=== PATIENT | female | born 1965 | race Caucasian/White ===

== ENCOUNTER 2016-11-29 17:06 | Inpatient (IN) | payer SELFPAY ==
--- NOTE | 2016-11-29 20:10 | HP ---
PRIMARY CARE PHYSICIAN: None. CHIEF COMPLAINT: Abdominal pain. HISTORY OF PRESENT ILLNESS: Ms. Stone is a pleasant 51-year-old lady, who was seen at [facility] on 11/29/2016, following transfer from [place]. She reports that she woke up from sleep around 5:15 a.m. today with right lower quadrant pain. She describes it as sharp, 10/10, nonradiating, on and off, lasting 2-3 minutes each time, no known aggr avating or relieving factors, accompanied by nausea and vomiting, but no diarrhea. She denies any f des or chills. She denies any dysuria. She reports that when she urinates, she feels pain in the right lower quadrant. She presented to the emergency room at [place], where she had CT scan of the abdomen and pelvis and was subsequently transferred to this facility. REVIEW OF SYSTEMS: The following complete review of systems was negative, unless otherwise mentione d in the HPI or below: CONSTITUTIONAL: Weight loss or gain, sense of well-being, ability to conduct usual activities, exer cise tolerance. SKIN/BREAST: Rash, itching, changes in hair growth or loss, nail changes, breast lumps, tenderness, swelling, nipple discharge. EYES: Vision, double vision, tearing, blind spots, pain. ENT/MOUTH: Headaches (location, time of onset, duration, precipitating factors), vertigo, lighthead edness, injury. Vision, double vision, tearing, blind spots, pain, nose bleeding, colds, obstruction , discharge, dental difficulties, gingival bleeding, dentures, neck stiffness, pain, tenderness, mas ses in thyroid or other areas. CARDIOVASCULAR: Precordial pain, substernal distress, palpitations, syncope, dyspnea on exertion, o rthopnea, nocturnal paroxysmal dyspnea, edema, cyanosis, hypertension, heart murmurs, varicosities, phlebitis, claudication. RESPIRATORY: Pain, shortness of breath, wheezing, stridor, cough, hemoptysis, fever or night sweats . GASTROINTESTINAL: Poor appetite, dysphagia, indigestion, abdominal pain, heartburn, eructation, dee sea, vomiting, hematemesis, jaundice, constipation, or diarrhea, abnormal stools (ravi-colored, flip y, bloody, greasy, foul smelling), flatulence, hemorrhoids, recent changes in bowel habits. GENITOURINARY: Urgency, frequency, dysuria, nocturia, hematuria, polyuria, oliguria, unusual (or ch parker in) color of urine, stones, hesitancy, change in size of stream, dribbling, acute retention or incontinence, libido, potency. MUSCULOSKELETAL: Pain, swelling, redness or heat of muscles or joints, limitation, of motion, muscu lar weakness, atrophy, cramps. NEUROLOGIC/PSYCHIATRIC: Convulsions, paralyses, tremor, incoordination, paresthesias, difficulties with memory of speech, sensory or motor disturbances, or muscular coordination (ataxia, tremor), emo tional problems, anxiety, depression, previous psychiatric care, unusual perceptions, hallucinations . ALLERGY/IMMUNOLOGIC: Skin rash, anemia, bleeding tendency, polydipsia, polyuria, intolerance to hea t or cold. PAST MEDICAL HISTORY: None. PAST SURGICAL HISTORY: Hysterectomy and kidney reconstruction as a child. FAMILY HISTORY: Diverticulitis in her father. SOCIAL HISTORY: No alcohol use or recreational drug use. She smokes 1 pack of cigarettes a day. ALLERGIES: CODEINE. CURRENT MEDICATIONS: None. PHYSICAL EXAMINATION: GENERAL: Ms. Stone is awake and alert, not in acute distress. VITAL SIGNS: She is afebrile. Blood pressure is 113/65, pulse is 91. She is breathing at rate of 16 and saturating 98% on room air. EYES: No scleral icterus. No conjunctival pallor. ENT: Dry mucosal membranes, no oropharyngeal erythema or exudates. NECK: Supple, nontender, normal range of movement, trachea is midline. RESPIRATORY: Accessory muscles of breathing are not active. Chest wall movements are symmetric rohini aterally. LUNGS: Clear to auscultation without wheeze, rhonchi or crepitations. CARDIOVASCULAR: S1 and S2 are heard, regular. Peripheral pulses palpable. No carotid bruit, no pe ricardial rub. ABDOMEN: She has right lower quadrant tenderness, no guarding or rigidity, bowel sounds are heard, no hepatomegaly, no splenomegaly. NEUROLOGIC: Cranial nerves II-XII are intact. Deep tendon reflexes are 2+. SKIN: No rashes or subcutaneous nodules. MUSCULOSKELETAL: Power is 5/5 in all 4 extremities, normal range of movement at all major extremity joints. LYMPHATIC: No cervical lymphadenopathy. PSYCHIATRIC: Normal mood, normal affect, patient is oriented to time, place, and person. LABORATORY DATA: Ms. Stone's labs and investigations were reviewed. She had a CT scan of the abdo men and pelvis, which showed an acute distal sigmoid colonic diverticulitis, grade 2 spondylolisthes is due to spondylolysis at L5/S1 and normal appendix. She had an electrocardiogram, which showed no rmal sinus rhythm. She has normal sodium, normal potassium, normal creatinine of 0.82, elevated glu cose of 145, normal calcium, elevated globulin of 3.6, normal total bilirubin, normal AST, normal AL T, leukocytosis with 22,400 white cells, of which 77% are neutrophils, normal platelet count and nor mal hemoglobin. Troponin I was normal. Urinalysis was positive for nitrite. ASSESSMENT AND PLAN: Ms. Stone is a pleasant 51-year-old lady, who was seen at [facility] on 11/29/2016. Her problem list includes: 1. Abdominal pain: Secondary to diverticulitis. She will be admitted to the hospital and will rec eive pain medications and intravenous fluids. 2. Diverticulitis: We will start patient on ceftriaxone and metronidazole. Discontinue ciprofloxa klaus, which has already received at [place], due to the possibility of urinary tract infection. 3. Urinary tract infection: Start ceftriaxone, follow cultures. 4. Tobacco abuse: Patient has been counseled regarding tobacco cessation. We will start her on ni cotine replacement therapy. 5. We will also consult Gastroenterology Service for management of diverticulitis. LEVEL OF RISK: Moderate. LEVEL OF COMPLEXITY: Moderate.
[2016-11-29] MEDS: Sodium Chloride 0.9% 1,000 ML IV SCH (21:18)
[2016-11-29] MEDS: Nicotine 21 MG PATCH TD SCH (21:23)
[2016-11-29 21:49] VITALS: BMI 29.1
[2016-11-29] MEDS: cefTRIAXone\\ROCEPHIN 1 GM in Sodium Chloride 0.9% 100 ML IVPB SCH (22:24)
[2016-11-29] MEDS: metroNIDAZOLE 500 MG in Premix Bag 1 BAG IVPB SCH (23:14)
[2016-11-30 05:17] LABS: #Eosinphils 0.1 thou/uL (0.0-0.7); #Lymphocytes 2.8 thou/uL (1.20-3.40); #Monocytes 0.6 thou/uL (0.11-0.59); #Neutrophils 8.9 thou/uL (1.40-6.50); %Basophils 0.1 % (0.0-1.0); %Lymphocytes 22.4 % (21.0-51.0); %Monocytes 4.9 % (0.0-10.0); Hematocrit 33.4 % (36.0-47.0); Mean Platelet Volume 7.4 fL (7.4-10.4); Red Blood Cell (RBC) Count 3.49 mill/uL (4.20-5.40); White Blood Cell (WBC) Count 12.5 thou/uL (4.8-10.8)
[2016-11-30 06:00] LABS: Anion Gap 10 mmol/L (10-20); BUN (Urea Nitrogen) 14 mg/dL (7.0-18.7); Calc. Creatinine Clearance 103 mL/min (70-130); Calcium 8.2 mg/dL (7.8-10.44); Carbon Dioxide 24 mmol/L (22-29); Chloride 105 mmol/L (98-107); Estimated GFR-MDRD 73
[2016-11-30] MEDS: metroNIDAZOLE 500 MG in Premix Bag 1 BAG IVPB SCH ×3 (06:25→22:41)
[2016-11-30] MEDS: Sodium Chloride 0.9% 1,000 ML IV SCH ×3 (06:26→22:48)
[2016-11-30] MEDS: Enoxaparin Sodium 40 MG/0.4 ML SYRINGE SC SCH (07:55)
[2016-11-30] MEDS ORDERED: Temazepam 15 MG CAP PO PRN (07:59)
[2016-11-30] MEDS ORDERED: Mag-Al 1200 mg/1200 mg/30 ML UDCUP PO PRN (07:59)
[2016-11-30] MEDS ORDERED: Senokot 8.6 MG TAB PO PRN (07:59)
[2016-11-30] MEDS ORDERED: Ondansetron ODT 4 MG TAB PO PRN (07:59)
[2016-11-30] MEDS ORDERED: Eucerin (Mineral Oil/Petrolatum,White) 30 gm Jar TOP PRN (07:59)
[2016-11-30] MEDS ORDERED: Diabetic Tussin 200 MG/10 ML UDCUP PO PRN (07:59)
[2016-11-30] MEDS ORDERED: Milk Of Magnesia 30 ML UDCUP PO PRN (07:59)
[2016-11-30] MEDS ORDERED: Sodium Chloride 0.65% Nasal 44 ML BOT EA NARE PRN (07:59)
[2016-11-30] MEDS ORDERED: Loratadine 10 MG TAB PO PRN (07:59)
[2016-11-30] MEDS: Famotidine 20 MG TAB PO SCH ×2 (09:30→20:41)
[2016-11-30] MEDS: Fish Oil 1,000 MG CAP PO SCH (09:31)
--- NOTE | 2016-11-30 10:54 | PDOC.PN ---
- Subjective Encounter Start Date: 11/30/16 Encounter Start Time: 09:10 -: old records requested/rev Patient seen and examined. No new complaints. No overnight events, c/o right abdominal pain - Objective MAR Reviewed: Yes Vital Signs & Weight: Vital Signs (12 hours) Temp Pulse Resp BP Pulse Ox 11/30/16 08:00 97.6 F 70 16 95 11/30/16 07:40 97.6 F 70 16 101/68 95 11/30/16 04:00 98 F 72 18 104/69 96 11/30/16 01:15 98.4 F 88 16 116/75 94 L Weight Weight 175 lb 1 oz I&O: 11/29/16 11/30/16 12/01/16 06:59 06:59 06:59 Intake Total 1500 Balance 1500 Result Diagrams: 11/30/16 04:04 11/30/16 04:04 Radiology Reviewed by me: Yes Phys Exam - Physical Examination Constitutional: NAD HEENT: PERRLA, moist MMs, sclera anicteric Neck: no JVD, supple Respiratory: no wheezing, no rales, no rhonchi Cardiovascular: RRR, no significant murmur, no rub Gastrointestinal: soft, no distention, positive bowel sounds RLQ pain Musculoskeletal: no edema, pulses present Neurological: non-focal, normal sensation, moves all 4 limbs Psychiatric: normal affect, A&O x 3 Skin: no rash, normal turgor Dx/Plan (1) Acute diverticulitis Code(s): K57.92 - DVTRCLI OF INTEST, PART UNSP, W/O PERF OR ABSCESS W/O BLEED Status: Acute (2) Abdominal pain Code(s): R10.9 - UNSPECIFIED ABDOMINAL PAIN Status: Acute Qualifiers: Abdominal location: lower abdomen, unspecified Qualified Code(s): R10.30 - Lower abdominal pain, unspecified (3) UTI (urinary tract infection) Status: Acute (4) Tobacco abuse Code(s): Z72.0 - TOBACCO USE Status: Chronic - Plan cont current plan of care, continue antibiotics * continue IVF * continue IV cipro and flagyl * medication reviewed as below * symptomatic treatment * pain control * GI consulted. Review of Systems - Review of Systems Constitutional: negative: Fever, Chills, Sweats, Weakness, Malaise, Other ENT: negative: Ear Pain, Ear Discharge, Nose Pain, Nose Discharge, Nose Congestion, Mouth Pain, Mouth Swelling, Throat Pain, Throat Swelling, Other Respiratory: negative: Cough, Dry, Shortness of Breath, Hemoptysis, SOB with Excertion, Pleuritic Pain, Sputum, Wheezing Cardiovascular: negative: Chest Pain, Palpitations, Orthopnea, Paroxysmal Noc. Dyspnea, Edema, Light Headedness, Other Gastrointestinal: Abdominal Pain. negative: Nausea, Vomiting, Diarrhea, Constipation, Melena, Hematochezia, Other Genitourinary: negative: Dysuria, Frequency, Incontinence, Hematuria, Retention , Other Musculoskeletal: negative: Neck Pain, Shoulder Pain, Arm Pain, Back Pain, Hand Pain, Leg Pain, Foot Pain, Other - Medications/Allergies Allergies/Adverse Reactions: Allergies Allergy/AdvReac Type Severity Reaction Status Date / Time codeine Allergy Verified 11/29/16 21:46 Medications: Current Medications Acetaminophen (Tylenol) 650 mg PO Q4H PRN PRN Reason: Headache/Fever or Pain Al Hydroxide/Mg Hydroxide (Maalox) 15 ml PO Q4H PRN PRN Reason: Heartburn or Indigestion Enoxaparin Sodium (Lovenox) 40 mg SC 0900 [facility] Last Admin: 11/30/16 07:55 Dose: 40 mg Famotidine (Pepcid) 20 mg PO BID [facility] Last Admin: 11/30/16 09:30 Dose: 20 mg Fish Oil (Fish Oil) 1,000 mg PO DAILY [facility] Last Admin: 11/30/16 09:31 Dose: 1,000 mg Guaifenesin (Robitussin Sf) 200 mg PO Q4H PRN PRN Reason: Cough Hydralazine HCl (Apresoline) 10 mg SLOW IVP Q4H PRN PRN Reason: Systolic BP > 180 Sodium Chloride (Normal Saline 0.9%) 1,000 mls @ 100 mls/hr IV .Q10H [facility] Last Admin: 11/30/16 06:26 Dose: Not Given Ceftriaxone Sodium 1 gm/ (Sodium Chloride) 100 mls @ 200 mls/hr IVPB Q24HR [facility] Last Admin: 11/29/16 22:24 Dose: 100 mls Metronidazole 500 mg/ Device 100 mls @ 100 mls/hr IVPB Q8HR [facility] Last Admin: 11/30/16 06:25 Dose: 100 mls Loratadine (Claritin) 10 mg PO DAILYPRN PRN PRN Reason: Sinus Symptoms Magnesium Hydroxide (Milk Of Magnesium) 30 ml PO DAILYPRN PRN PRN Reason: Constipation Mineral Oil/White Petrolatum (Eucerin Cream) 0 gm TOP BIDPRN PRN PRN Reason: Dry Skin Morphine Sulfate (Morphine Sulfate) 2 mg SLOW IVP Q4H PRN PRN Reason: Moderate to Severe Pain (4-10) Last Admin: 11/30/16 07:52 Dose: 2 mg Nicotine (Nicoderm Patch) 21 mg TD Q24HR [facility] Last Admin: 11/29/16 21:23 Dose: 21 mg Ondansetron HCl (Zofran Odt) 4 mg PO Q6H PRN PRN Reason: Nausea/Vomiting Ondansetron HCl (Zofran) 4 mg IVP Q6H PRN PRN Reason: Nausea/Vomiting Senna (Senokot) 2 tab PO HSPRN PRN PRN Reason: Constipation Sodium Chloride ([place] Nasal [place] 0.65%) 0 ml EA NARE QIDPRN PRN PRN Reason: Nasal Congestion Sodium Chloride (Flush - Normal Saline) 10 ml IVF Q12HR [facility] Last Admin: 11/30/16 09:31 Dose: Not Given Sodium Chloride (Flush - Normal Saline) 10 ml IVF PRN PRN PRN Reason: Saline Flush Temazepam (Restoril) 15 mg PO HSPRN PRN PRN Reason: Insomnia
[2016-11-30] MEDS: Ondansetron HCl/PF 4 MG/2 ML Vial IVP PRN (11:32)
--- NOTE | 2016-11-30 13:17 | CON ---
DATE OF CONSULTATION: 11/30/2016 HISTORY OF PRESENT ILLNESS: The patient is a 51-year-old female who reports a 2-day histo ry of abdominal pain. She says this pain is in right lower quadrant and less so in the left lower q uadrant, it is cramping, severe pain, has been associated with some nausea and vomiting. She has al so had some diarrhea. She has never had an episode of diverticulitis. She sought treatment in the emergency room and an abdominal and pelvic CT was performing show acute distal sigmoid colonic diver ticulitis, but no other abnormalities. She did have some fever and chills with this episode. PAST MEDICAL HISTORY: Negative. PAST SURGICAL HISTORY: Includes, 1. Ureteral reconstruction as a child. 2. Hysterectomy. 3. Tubal ligation. MEDICATIONS: None. ALLERGIES: CODEINE. SOCIAL HISTORY: She does smoke 6 cigarettes per day. Does not drink alcohol. FAMILY HISTORY: Significant for father with diverticulitis. REVIEW OF SYSTEMS: Ten systems were reviewed and were negative except for above. PHYSICAL EXAMINATION: GENERAL: Shows overweight female in no acute distress. HEENT: Unremarkable. NECK: Supple. CHEST: Clear. CARDIOVASCULAR: Regular rate and rhythm without murmurs or gallops. ABDOMEN: Soft. Tender diffusely with some guarding, no rebound. Bowel sounds are present and norm oactive. RECTAL: Deferred. EXTREMITIES: Normal. NEUROLOGIC: Nonfocal. ASSESSMENT: Uncomplicated sigmoid diverticulitis. RECOMMENDATIONS: 1. Antibiotics. 2. Outpatient colonoscopy in 2-3 months. 3. Home, once the patient is able to tolerate oral pain medicine to control the pain.
[2016-11-30] MEDS: cefTRIAXone\\ROCEPHIN 1 GM in Sodium Chloride 0.9% 100 ML IVPB SCH (20:39)
[2016-11-30] MEDS: Nicotine 21 MG PATCH TD SCH (20:41)
[2016-11-30] MEDS: Acetaminophen 325 MG TAB PO PRN (22:47)
[2016-12-01 05:40] LABS: #Eosinphils 0.1 thou/uL (0.0-0.7); #Lymphocytes 2.6 thou/uL (1.20-3.40); #Monocytes 0.5 thou/uL (0.11-0.59); #Neutrophils 4.4 thou/uL (1.40-6.50); %Basophils 0.5 % (0.0-1.0); %Eosinophils 1.8 % (0.0-10.0); %Lymphocytes 34.2 % (21.0-51.0); %Monocytes 6.2 % (0.0-10.0); Hematocrit 33.9 % (36.0-47.0); Mean Platelet Volume 7.5 fL (7.4-10.4); Red Blood Cell (RBC) Count 3.54 mill/uL (4.20-5.40); White Blood Cell (WBC) Count 7.6 thou/uL (4.8-10.8)
[2016-12-01] MEDS: metroNIDAZOLE 500 MG in Premix Bag 1 BAG IVPB SCH ×3 (05:57→20:18)
[2016-12-01 06:06] LABS: Anion Gap 6 mmol/L (10-20); BUN (Urea Nitrogen) 12 mg/dL (7.0-18.7); Calc. Creatinine Clearance 102 mL/min (70-130); Calcium 7.8 mg/dL (7.8-10.44); Carbon Dioxide 26 mmol/L (22-29); Chloride 109 mmol/L (98-107); Estimated GFR-MDRD 72
[2016-12-01] MEDS: Enoxaparin Sodium 40 MG/0.4 ML SYRINGE SC SCH ×2 (07:55→07:56)
[2016-12-01] MEDS: Fish Oil 1,000 MG CAP PO SCH (07:55)
[2016-12-01] MEDS: Famotidine 20 MG TAB PO SCH ×2 (07:55→20:17)
[2016-12-01] MEDS ORDERED: Lidocaine 2% Jelly 30 GM TUBE TOP PRN (11:49)
--- NOTE | 2016-12-01 12:04 | PDOC.PN ---
- Subjective Encounter Start Date: 12/01/16 Encounter Start Time: 10:30 -: old records requested/rev pt has lower abdominal pain and requiring pain meds - Objective MAR Reviewed: Yes Vital Signs & Weight: Vital Signs (12 hours) Temp Pulse Resp BP Pulse Ox 12/01/16 09:38 120/80 12/01/16 08:00 97.6 F 68 18 120/80 96 12/01/16 04:00 97.7 F 64 20 129/85 95 Weight Weight 175 lb 1 oz I&O: 11/30/16 12/01/16 12/02/16 06:59 06:59 06:59 Intake Total 1500 4000 Balance 1500 4000 Result Diagrams: 12/01/16 04:13 12/01/16 04:13 Phys Exam - Physical Examination Constitutional: NAD HEENT: PERRLA, moist MMs, sclera anicteric Neck: no JVD, supple Respiratory: no wheezing, no rales, no rhonchi Cardiovascular: RRR, no significant murmur, no rub Gastrointestinal: soft, no distention, positive bowel sounds lower abdominal pain Musculoskeletal: no edema, pulses present Neurological: non-focal, normal sensation, moves all 4 limbs Psychiatric: normal affect, A&O x 3 Skin: no rash, normal turgor Dx/Plan (1) Acute diverticulitis Code(s): K57.92 - DVTRCLI OF INTEST, PART UNSP, W/O PERF OR ABSCESS W/O BLEED Status: Acute (2) Abdominal pain Code(s): R10.9 - UNSPECIFIED ABDOMINAL PAIN Status: Acute Qualifiers: Abdominal location: lower abdomen, unspecified Qualified Code(s): R10.30 - Lower abdominal pain, unspecified (3) UTI (urinary tract infection) Status: Acute (4) Tobacco abuse Code(s): Z72.0 - TOBACCO USE Status: Chronic - Plan cont current plan of care, continue antibiotics * continue cipro and flagyl * will continue pain medication for pain control * possible discharge tomorrow * medication reviewed as below * symptomatic treatment.. Review of Systems - Review of Systems Constitutional: negative: Fever, Chills, Sweats, Weakness, Malaise, Other Eyes: negative: Pain, Vision Change, Conjunctivae Inflammation, Eyelid Inflammation, Redness, Other ENT: negative: Ear Pain, Ear Discharge, Nose Pain, Nose Discharge, Nose Congestion, Mouth Pain, Mouth Swelling, Throat Pain, Throat Swelling, Other Respiratory: negative: Cough, Dry, Shortness of Breath, Hemoptysis, SOB with Excertion, Pleuritic Pain, Sputum, Wheezing Cardiovascular: negative: Chest Pain, Palpitations, Orthopnea, Paroxysmal Noc. Dyspnea, Edema, Light Headedness, Other Gastrointestinal: Abdominal Pain. negative: Nausea, Vomiting, Diarrhea, Constipation, Melena, Hematochezia, Other Genitourinary: negative: Dysuria, Frequency, Incontinence, Hematuria, Retention , Other Musculoskeletal: negative: Neck Pain, Shoulder Pain, Arm Pain, Back Pain, Hand Pain, Leg Pain, Foot Pain, Other - Medications/Allergies Allergies/Adverse Reactions: Allergies Allergy/AdvReac Type Severity Reaction Status Date / Time codeine Allergy Verified 11/29/16 21:46 Medications: Current Medications Acetaminophen (Tylenol) 650 mg PO Q4H PRN PRN Reason: Headache/Fever or Pain Last Admin: 11/30/16 22:47 Dose: 650 mg Al Hydroxide/Mg Hydroxide (Maalox) 15 ml PO Q4H PRN PRN Reason: Heartburn or Indigestion Enoxaparin Sodium (Lovenox) 40 mg SC 0900 [facility] Last Admin: 12/01/16 07:56 Dose: 40 mg Famotidine (Pepcid) 20 mg PO BID [facility] Last Admin: 12/01/16 07:55 Dose: 20 mg Fish Oil (Fish Oil) 1,000 mg PO DAILY [facility] Last Admin: 12/01/16 07:55 Dose: 1,000 mg Guaifenesin (Robitussin Sf) 200 mg PO Q4H PRN PRN Reason: Cough Hydralazine HCl (Apresoline) 10 mg SLOW IVP Q4H PRN PRN Reason: Systolic BP > 180 Sodium Chloride (Normal Saline 0.9%) 1,000 mls @ 100 mls/hr IV .Q10H [facility] Last Admin: 11/30/16 22:48 Dose: 1,000 mls Ceftriaxone Sodium 1 gm/ (Sodium Chloride) 100 mls @ 200 mls/hr IVPB Q24HR [facility] Last Admin: 11/30/16 20:39 Dose: 100 mls Metronidazole 500 mg/ Device 100 mls @ 100 mls/hr IVPB Q8HR [facility] Last Admin: 12/01/16 05:57 Dose: 100 mls Lidocaine HCl (Xylocaine 2%) 0 gm TOP PRN PRN PRN Reason: .PRN Loratadine (Claritin) 10 mg PO DAILYPRN PRN PRN Reason: Sinus Symptoms Magnesium Hydroxide (Milk Of Magnesium) 30 ml PO DAILYPRN PRN PRN Reason: Constipation Mineral Oil/White Petrolatum (Eucerin Cream) 0 gm TOP BIDPRN PRN PRN Reason: Dry Skin Morphine Sulfate (Morphine Sulfate) 2 mg SLOW IVP Q4H PRN PRN Reason: Moderate to Severe Pain (4-10) Last Admin: 12/01/16 07:56 Dose: 2 mg Nicotine (Nicoderm Patch) 21 mg TD Q24HR [facility] Last Admin: 11/30/16 20:41 Dose: 21 mg Ondansetron HCl (Zofran Odt) 4 mg PO Q6H PRN PRN Reason: Nausea/Vomiting Ondansetron HCl (Zofran) 4 mg IVP Q6H PRN PRN Reason: Nausea/Vomiting Last Admin: 11/30/16 11:32 Dose: 4 mg Senna (Senokot) 2 tab PO HSPRN PRN PRN Reason: Constipation Sodium Chloride ([place] Nasal [place] 0.65%) 0 ml EA NARE QIDPRN PRN PRN Reason: Nasal Congestion Sodium Chloride (Flush - Normal Saline) 10 ml IVF Q12HR [facility] Last Admin: 12/01/16 07:59 Dose: Not Given Sodium Chloride (Flush - Normal Saline) 10 ml IVF PRN PRN PRN Reason: Saline Flush Temazepam (Restoril) 15 mg PO HSPRN PRN PRN Reason: Insomnia
[2016-12-01] MEDS: Sodium Chloride 0.9% 1,000 ML IV SCH ×2 (12:09→20:22)
--- NOTE | 2016-12-01 17:54 | PRG ---
DATE OF SERVICE: 12/01/2016 SUBJECTIVE: Ms. Stone seems a little better in terms of left lower quadrant pain, still has diarrh ea. The pain is actually more worse on the right than the left. She really is still needing to sto op over when she walks. She has been placed on a regular diet. MEDICATIONS: She is on Rocephin IV and Flagyl IV. PHYSICAL EXAMINATION: VITAL SIGNS: Temperature 98, pulse 67, blood pressure 128/79. ABDOMEN: Soft. There is voluntary guarding in the left and right lower quadrant. There is no rebo und. LABORATORY DATA: White count 7.6 down from 12.5, hemoglobin was 11.1. Basic metabolic profile is n ormal. ASSESSMENT: Acute diverticulitis without signs of perforation or abscess. PLAN: 1. A 24 hours IV fluids and reevaluated at that time. 2. Low residue diet.
[2016-12-01] MEDS: Nicotine 21 MG PATCH TD SCH (20:17)
[2016-12-01] MEDS: cefTRIAXone\\ROCEPHIN 1 GM in Sodium Chloride 0.9% 100 ML IVPB SCH (20:18)
[2016-12-02] MEDS: Ondansetron HCl/PF 4 MG/2 ML Vial IVP PRN ×2 (02:08→08:01)
[2016-12-02] MEDS: metroNIDAZOLE 500 MG in Premix Bag 1 BAG IVPB SCH ×3 (05:24→19:41)
[2016-12-02 05:33] LABS: #Eosinphils 0.1 thou/uL (0.0-0.7); #Lymphocytes 1.8 thou/uL (1.20-3.40); #Monocytes 0.4 thou/uL (0.11-0.59); #Neutrophils 3.8 thou/uL (1.40-6.50); %Basophils 0.6 % (0.0-1.0); %Eosinophils 1.8 % (0.0-10.0); %Lymphocytes 29.6 % (21.0-51.0); %Monocytes 6.5 % (0.0-10.0); Hematocrit 31.6 % (36.0-47.0); Mean Platelet Volume 7.9 fL (7.4-10.4); White Blood Cell (WBC) Count 6.2 thou/uL (4.8-10.8)
[2016-12-02 05:54] LABS: Anion Gap 11 mmol/L (10-20); BUN (Urea Nitrogen) 10 mg/dL (7.0-18.7); Calc. Creatinine Clearance 112 mL/min (70-130); Calcium 8.1 mg/dL (7.8-10.44); Carbon Dioxide 21 mmol/L (22-29); Chloride 107 mmol/L (98-107); Estimated GFR-MDRD 81
[2016-12-02] MEDS: Famotidine 20 MG TAB PO SCH ×2 (08:02→19:41)
[2016-12-02] MEDS: Fish Oil 1,000 MG CAP PO SCH (08:03)
[2016-12-02] MEDS: Sodium Chloride 0.9% 1,000 ML IV SCH ×3 (08:10→15:29)
--- NOTE | 2016-12-02 10:20 | PDOC.PN ---
- Subjective Encounter Start Date: 12/02/16 Encounter Start Time: 10:00 Patient seen and examined. has sore abdomen and had vomiting last night, has diarrhoea - Objective MAR Reviewed: Yes Vital Signs & Weight: Vital Signs (12 hours) Temp Pulse Resp BP BP Pulse Ox 12/02/16 08:08 97.9 F 62 16 132/80 96 12/02/16 08:00 97.9 F 62 16 12/02/16 04:06 98.0 F 70 20 114/70 94 L 12/02/16 00:00 98.0 F 67 20 112/63 96 Weight Weight 175 lb 1 oz I&O: 12/01/16 12/02/16 12/03/16 06:59 06:59 06:59 Intake Total 4000 3660 Balance 4000 3660 Result Diagrams: 12/02/16 04:07 12/02/16 04:07 Phys Exam - Physical Examination Constitutional: NAD HEENT: PERRLA, moist MMs, sclera anicteric Neck: no JVD, supple Respiratory: no wheezing, no rales, no rhonchi Cardiovascular: RRR, no significant murmur, no rub Gastrointestinal: soft, no distention, positive bowel sounds sore lower abdomen Musculoskeletal: no edema, pulses present Neurological: non-focal, normal sensation, moves all 4 limbs Psychiatric: normal affect, A&O x 3 Skin: no rash, normal turgor Dx/Plan (1) Acute diverticulitis Code(s): K57.92 - DVTRCLI OF INTEST, PART UNSP, W/O PERF OR ABSCESS W/O BLEED Status: Acute (2) Abdominal pain Code(s): R10.9 - UNSPECIFIED ABDOMINAL PAIN Status: Acute Qualifiers: Abdominal location: lower abdomen, unspecified Qualified Code(s): R10.30 - Lower abdominal pain, unspecified (3) UTI (urinary tract infection) Status: Acute (4) Tobacco abuse Code(s): Z72.0 - TOBACCO USE Status: Chronic - Plan cont current plan of care, continue antibiotics * overall pt is doing well but needs symptomatic treatment * pt relies on GI regarding discharge decision * medication reviewed as below. * symptomatic treatment. * continue iv cipro and flagyl Review of Systems - Review of Systems ENT: negative: Ear Pain, Ear Discharge, Nose Pain, Nose Discharge, Nose Congestion, Mouth Pain, Mouth Swelling, Throat Pain, Throat Swelling, Other Respiratory: negative: Cough, Dry, Shortness of Breath, Hemoptysis, SOB with Excertion, Pleuritic Pain, Sputum, Wheezing Cardiovascular: negative: Chest Pain, Palpitations, Orthopnea, Paroxysmal Noc. Dyspnea, Edema, Light Headedness, Other Gastrointestinal: Nausea, Abdominal Pain. negative: Vomiting, Diarrhea, Constipation, Melena, Hematochezia, Other Genitourinary: negative: Dysuria, Frequency, Incontinence, Hematuria, Retention , Other Musculoskeletal: negative: Neck Pain, Shoulder Pain, Arm Pain, Back Pain, Hand Pain, Leg Pain, Foot Pain, Other - Medications/Allergies Allergies/Adverse Reactions: Allergies Allergy/AdvReac Type Severity Reaction Status Date / Time codeine Allergy Verified 11/29/16 21:46 Medications: Current Medications Acetaminophen (Tylenol) 650 mg PO Q4H PRN PRN Reason: Headache/Fever or Pain Last Admin: 11/30/16 22:47 Dose: 650 mg Al Hydroxide/Mg Hydroxide (Maalox) 15 ml PO Q4H PRN PRN Reason: Heartburn or Indigestion Enoxaparin Sodium (Lovenox) 40 mg SC 0900 [facility] Last Admin: 12/01/16 07:56 Dose: 40 mg Famotidine (Pepcid) 20 mg PO BID [facility] Last Admin: 12/02/16 08:02 Dose: 20 mg Fish Oil (Fish Oil) 1,000 mg PO DAILY [facility] Last Admin: 12/02/16 08:03 Dose: 1,000 mg Guaifenesin (Robitussin Sf) 200 mg PO Q4H PRN PRN Reason: Cough Hydralazine HCl (Apresoline) 10 mg SLOW IVP Q4H PRN PRN Reason: Systolic BP > 180 Sodium Chloride (Normal Saline 0.9%) 1,000 mls @ 100 mls/hr IV .Q10H [facility] Last Admin: 12/02/16 09:14 Dose: 1,000 mls Ceftriaxone Sodium 1 gm/ (Sodium Chloride) 100 mls @ 200 mls/hr IVPB Q24HR [facility] Last Admin: 12/01/16 20:18 Dose: 100 mls Metronidazole 500 mg/ Device 100 mls @ 100 mls/hr IVPB Q8HR [facility] Last Admin: 12/02/16 05:24 Dose: 100 mls Lidocaine HCl (Xylocaine 2%) 0 gm TOP PRN PRN PRN Reason: .PRN Last Admin: 12/01/16 16:23 Dose: 1 applic Loratadine (Claritin) 10 mg PO DAILYPRN PRN PRN Reason: Sinus Symptoms Magnesium Hydroxide (Milk Of Magnesium) 30 ml PO DAILYPRN PRN PRN Reason: Constipation Mineral Oil/White Petrolatum (Eucerin Cream) 0 gm TOP BIDPRN PRN PRN Reason: Dry Skin Morphine Sulfate (Morphine Sulfate) 2 mg SLOW IVP Q4H PRN PRN Reason: Moderate to Severe Pain (4-10) Last Admin: 12/02/16 09:10 Dose: 2 mg Nicotine (Nicoderm Patch) 21 mg TD Q24HR [facility] Last Admin: 12/01/16 20:17 Dose: 21 mg Ondansetron HCl (Zofran Odt) 4 mg PO Q6H PRN PRN Reason: Nausea/Vomiting Ondansetron HCl (Zofran) 4 mg IVP Q6H PRN PRN Reason: Nausea/Vomiting Last Admin: 12/02/16 08:01 Dose: 4 mg Senna (Senokot) 2 tab PO HSPRN PRN PRN Reason: Constipation Sodium Chloride ([place] Nasal [place] 0.65%) 0 ml EA NARE QIDPRN PRN PRN Reason: Nasal Congestion Sodium Chloride (Flush - Normal Saline) 10 ml IVF Q12HR [facility] Last Admin: 12/02/16 09:18 Dose: Not Given Sodium Chloride (Flush - Normal Saline) 10 ml IVF PRN PRN PRN Reason: Saline Flush Temazepam (Restoril) 15 mg PO HSPRN PRN PRN Reason: Insomnia
[2016-12-02] MEDS: Acetaminophen 325 MG TAB PO PRN (14:53)
[2016-12-02] MEDS: cefTRIAXone\\ROCEPHIN 1 GM in Sodium Chloride 0.9% 100 ML IVPB SCH (19:42)
[2016-12-02] MEDS: Nicotine 21 MG PATCH TD SCH (19:42)
--- NOTE | 2016-12-02 23:00 | PRG ---
DATE OF SERVICE: 12/02/2016 SUBJECTIVE: Ms. Stone is feeling better. She is tolerating a low fiber diet. PHYSICAL EXAMINATION: VITAL SIGNS: Temperature 97, pulse 62, blood pressure is 132/80. LUNGS: Clear. HEART: Regular rate and rhythm. ABDOMEN: glassine machine tender in the lower abdomen. LABORATORY STUDIES: White count 6.2 down from 12 on admission, hemoglobin is 10.8, platelet count 1 72. Basic metabolic profile is normal. ASSESSMENT: Sigmoid diverticulitis, uncomplicated improving with IV antibiotics. PLAN: I think if she continues to improve tomorrow, she can go home with oral antibiotics, Levaquin and Flagyl for 10 more days and follow up with me in the office in 1-2 weeks.
[2016-12-03 04:43] VITALS: TEMP 97.9
[2016-12-03] MEDS: Sodium Chloride 0.9% 1,000 ML IV SCH (04:43)
[2016-12-03] MEDS: metroNIDAZOLE 500 MG in Premix Bag 1 BAG IVPB SCH (04:44)
[2016-12-03 07:18] VITALS: BP 114/70
[2016-12-03] MEDS: Famotidine 20 MG TAB PO SCH (08:35)
[2016-12-03] MEDS: Fish Oil 1,000 MG CAP PO SCH (08:35)
[2016-12-03] MEDS: Enoxaparin Sodium 40 MG/0.4 ML SYRINGE SC SCH (08:35)
--- NOTE | 2016-12-03 10:15 | PDOC.PN ---
- Subjective Encounter Start Date: 12/03/16 Encounter Start Time: 07:15 Patient seen and examined. No new complaints. No overnight events - Objective MAR Reviewed: Yes Vital Signs & Weight: Vital Signs (12 hours) Temp Pulse Resp BP Pulse Ox 12/03/16 07:16 97.9 F 62 18 114/70 94 L 12/03/16 04:40 97.9 F 70 20 117/74 94 L 12/02/16 23:47 98.2 F 58 L 20 123/74 96 Weight Weight 175 lb 1 oz I&O: 12/02/16 12/03/16 12/04/16 06:59 06:59 06:59 Intake Total 3660 2200 Balance 3660 2200 Result Diagrams: 12/02/16 04:07 12/02/16 04:07 Phys Exam - Physical Examination Constitutional: NAD HEENT: PERRLA, moist MMs, sclera anicteric Neck: no JVD, supple Respiratory: no wheezing, no rales, no rhonchi Cardiovascular: RRR, no significant murmur, no rub Gastrointestinal: soft, non-tender, no distention, positive bowel sounds Musculoskeletal: no edema, pulses present Neurological: non-focal, normal sensation Psychiatric: normal affect, A&O x 3 Skin: normal turgor Dx/Plan (1) Acute diverticulitis Code(s): K57.92 - DVTRCLI OF INTEST, PART UNSP, W/O PERF OR ABSCESS W/O BLEED Status: Acute (2) Abdominal pain Code(s): R10.9 - UNSPECIFIED ABDOMINAL PAIN Status: Acute Qualifiers: Abdominal location: lower abdomen, unspecified Qualified Code(s): R10.30 - Lower abdominal pain, unspecified (3) UTI (urinary tract infection) Status: Acute (4) Tobacco abuse Code(s): Z72.0 - TOBACCO USE Status: Chronic - Plan cont current plan of care, continue antibiotics * medication reviewed as below * symptomatic treatment * see discharge all. Review of Systems - Review of Systems ENT: negative: Ear Pain, Ear Discharge, Nose Pain, Nose Discharge, Nose Congestion, Mouth Pain, Mouth Swelling, Throat Pain, Throat Swelling, Other Respiratory: negative: Cough, Dry, Shortness of Breath, Hemoptysis, SOB with Excertion, Pleuritic Pain, Sputum, Wheezing Cardiovascular: negative: Chest Pain, Palpitations, Orthopnea, Paroxysmal Noc. Dyspnea, Edema, Light Headedness, Other Gastrointestinal: negative: Nausea, Vomiting, Abdominal Pain, Diarrhea, Constipation, Melena, Hematochezia, Other Genitourinary: negative: Dysuria, Frequency, Incontinence, Hematuria, Retention , Other Musculoskeletal: negative: Neck Pain, Shoulder Pain, Arm Pain, Back Pain, Hand Pain, Leg Pain, Foot Pain, Other - Medications/Allergies Allergies/Adverse Reactions: Allergies Allergy/AdvReac Type Severity Reaction Status Date / Time codeine Allergy Verified 11/29/16 21:46 Medications: Current Medications Acetaminophen (Tylenol) 650 mg PO Q4H PRN PRN Reason: Headache/Fever or Pain Last Admin: 12/02/16 14:53 Dose: 650 mg Al Hydroxide/Mg Hydroxide (Maalox) 15 ml PO Q4H PRN PRN Reason: Heartburn or Indigestion Enoxaparin Sodium (Lovenox) 40 mg SC 0900 [facility] Last Admin: 12/03/16 08:35 Dose: Not Given Famotidine (Pepcid) 20 mg PO BID [facility] Last Admin: 12/03/16 08:35 Dose: 20 mg Fish Oil (Fish Oil) 1,000 mg PO DAILY [facility] Last Admin: 12/03/16 08:35 Dose: 1,000 mg Guaifenesin (Robitussin Sf) 200 mg PO Q4H PRN PRN Reason: Cough Hydralazine HCl (Apresoline) 10 mg SLOW IVP Q4H PRN PRN Reason: Systolic BP > 180 Sodium Chloride (Normal Saline 0.9%) 1,000 mls @ 100 mls/hr IV .Q10H [facility] Last Admin: 12/03/16 04:43 Dose: 1,000 mls Ceftriaxone Sodium 1 gm/ (Sodium Chloride) 100 mls @ 200 mls/hr IVPB Q24HR [facility] Last Admin: 12/02/16 19:42 Dose: 100 mls Metronidazole 500 mg/ Device 100 mls @ 100 mls/hr IVPB Q8HR [facility] Last Admin: 12/03/16 04:44 Dose: 100 mls Lidocaine HCl (Xylocaine 2%) 0 gm TOP PRN PRN PRN Reason: .PRN Last Admin: 12/01/16 16:23 Dose: 1 applic Loratadine (Claritin) 10 mg PO DAILYPRN PRN PRN Reason: Sinus Symptoms Magnesium Hydroxide (Milk Of Magnesium) 30 ml PO DAILYPRN PRN PRN Reason: Constipation Mineral Oil/White Petrolatum (Eucerin Cream) 0 gm TOP BIDPRN PRN PRN Reason: Dry Skin Morphine Sulfate (Morphine Sulfate) 2 mg SLOW IVP Q4H PRN PRN Reason: Moderate to Severe Pain (4-10) Last Admin: 12/03/16 04:46 Dose: 2 mg Nicotine (Nicoderm Patch) 21 mg TD Q24HR [facility] Last Admin: 12/02/16 19:42 Dose: 21 mg Ondansetron HCl (Zofran Odt) 4 mg PO Q6H PRN PRN Reason: Nausea/Vomiting Ondansetron HCl (Zofran) 4 mg IVP Q6H PRN PRN Reason: Nausea/Vomiting Last Admin: 12/02/16 08:01 Dose: 4 mg Senna (Senokot) 2 tab PO HSPRN PRN PRN Reason: Constipation Sodium Chloride ([place] Nasal [place] 0.65%) 0 ml EA NARE QIDPRN PRN PRN Reason: Nasal Congestion Sodium Chloride (Flush - Normal Saline) 10 ml IVF Q12HR POLY Last Admin: 12/03/16 08:35 Dose: Not Given Sodium Chloride (Flush - Normal Saline) 10 ml IVF PRN PRN PRN Reason: Saline Flush Temazepam (Restoril) 15 mg PO HSPRN PRN PRN Reason: Insomnia
--- NOTE | 2016-12-03 11:10 | DIS ---
PRIMARY CARE PHYSICIAN: [facility] call admission. DATE OF ADMISSION: 11/29/2016 DATE OF DISCHARGE: 12/03/2016 DISCHARGE DISPOSITION: Home. PRIMARY DISCHARGE DIAGNOSES: 1. Acute diverticulitis. 2. Urinary tract infection. SECONDARY DISCHARGE DIAGNOSES: Tobacco abuse disorder. PRIMARY PROCEDURE/OPERATION: None. RADIOLOGICAL INVESTIGATION: Abdomen and pelvis CT scan showed acute sigmoid diverticulitis. SIGNIFICANT LABS: Hemoglobin 10.8, creatinine 0.76. DISCHARGE MEDICATIONS: Ciprofloxacin 500 mg p.o. b.i.d. for 10 days, Flagyl 500 mg p.o. t.i.d. for 10 days, Florastor 250 mg p.o. daily for 10 days, fish oil 1000 mg p.o. daily. CONTRAINDICATIONS: None. CODE STATUS: Full. TEST RESULTS PENDING ON DISCHARGE: None. ALLERGIES: CODEINE. DISCHARGE PLAN: Post hospital, the patient will follow up with primary care physician as well as Dr Will Dewitt for outpatient colonoscopy. HOSPITAL COURSE: A 51-year-old female who was admitted by Dr. Alcazar, please see his H\T\P for furth er details. The patient was having left lower quadrant abdominal pain as well as UTI symptoms. In the emergency room, she had CT of the abdomen and pelvis which showed acute sigmoid diverticulitis. The patient was admitted to medical floor. She was treated with IV Rocephin and Flagyl. On discha rge, we changed to p.o. Cipro and Flagyl. The patient was also hydrated with IV fluids and patient was given necessary patient education about diet. GI was also consulted and they recommended to do colonoscopy after discharge in 2-3 weeks. At this point, the patient's pain is significantly impro demetra. She is tolerating p.o. well. All consultants cleared her for discharge. The patient was seen and examined at bedside today. Please see my progress note today for further d etails. New medication prescriptions sent to her pharmacy.
== END 2016-12-03 13:12 | disposition home or self-care (01) | DRG 392 ==
LOC: ERS 17:06 → T4-A 19:33
PROVIDERS: ADMIT Internal Medicine; ATTEND Internal Medicine
DX: K57.32 Diverticulitis of large intestine without perforation or abscess without bleeding (principal); N39.0 Urinary tract infection, site not specified; F17.210 Nicotine dependence, cigarettes, uncomplicated
CPT/HCPCS: 36415; 80048; 85025; 96374; A4216; J0696; J0744; J1650; J2270; J2405; J7050